=== PATIENT | male | born 2000 | race Caucasian/White ===

== ENCOUNTER 2019-09-20 06:03 | Day surgery (SDC) | payer OTHER ==
[~2019-09-20] VITALS: Ht 182.9 cm; Wt 113.9 kg
[~2019-09-20 06:03] MED LIST: LIDOCAINE 1% MDV 20ML VIAL SQ PRN; LR 1,000 ML IV ONE
[2019-09-20] MEDS ORDERED: dexameTHASONE 4 MG/ML 1ML VIAL (J1100) As Ordered ONE (07:35)
[2019-09-20] MEDS ORDERED: MIDAZOLAM INJ 2 MG/2 ML VIAL (J2250) As Ordered ONE (07:35)
[2019-09-20] MEDS ORDERED: PROPOFOL 200 MG/20 ML VIAL As Ordered ONE (07:35)
[2019-09-20] MEDS ORDERED: SUCCINYLCHOLINE 100 MG/5 ML SYRINGE (J0330) As Ordered ONE (07:35)
[2019-09-20] MEDS ORDERED: LIDOCAINE 2% INJ 100 MG/5 ML SDV (FOR ANES.) As Ordered ONE (07:35)
[2019-09-20] MEDS ORDERED: fentaNYL 100 MCG/2 ML INJECTION (J3010) As Ordered ONE (07:35)
[2019-09-20] MEDS ORDERED: ONDANSETRON 4MG/2ML VIAL (J2405) As Ordered ONE (07:35)
[2019-09-20] MEDS ORDERED: ROCURONIUM BROMIDE 50 MG/5 ML VIAL As Ordered ONE (07:35)
[2019-09-20] MEDS: BUPIVACAINE/EPIN 0.5% 30 ML VIAL As Ordered ONE (07:40)
[2019-09-20] MEDS: LIDOCAINE W/EPINEPHRINE 1% 20ML VIAL As Ordered ONE (07:40)
[2019-09-20 09:05] VITALS: BP 140/65
[2019-09-20] MEDS ORDERED: fentaNYL 100 MCG/2 ML INJECTION (J3010) IV PRN (11:45)
[2019-09-20] MEDS ORDERED: NORCO, ANEXSIA 5/325MG TABLET (HYDROcodone/ACETAMINOPHEN) PO PRN (11:45)
[2019-09-20] MEDS ORDERED: PERCOCET 5MG/325MG TAB PO PRN (11:45)
[2019-09-20] MEDS ORDERED: ONDANSETRON 4MG/2ML VIAL (J2405) IV PRN (11:45)
[2019-09-20] MEDS ORDERED: METOCLOPRAMIDE INJ 10MG/2ML VIAL (J2765) IV PRN (11:45)
[2019-09-20] MEDS ORDERED: LR 1,000 ML IV SCH ×2 (11:45)
--- NOTE | 2019-09-21 12:39 | RO ---
DATE OF PROCEDURE: 09/20/2019 PREOPERATIVE DIAGNOSIS: Chronic tonsillitis. POSTOPERATIVE DIAGNOSIS: Chronic tonsillitis. PROCEDURE: Tonsillectomy. SURGEON: Jv Talbot MD [facility]: ANESTHESIA: DESCRIPTION OF PROCEDURE: Under general anesthesia with the patient intubated, Bernard-Collin mouth gag was inserted. The tonsil area was infiltrated with lidocaine and infiltrated with Marcaine. Using cautery I dissected the tonsil free from its bed on both sides. The base and apex and other areas were cauterized with cautery. I did use some suction cautery on left side at the base. The patient tolerated the procedure well. Minimal blood loss. The patient extubated and transferred to the recovery room in excellent condition.
== END 2019-09-20 09:17 | disposition home or self-care (01) ==
LOC: M SDC 06:03
PROVIDERS: ATTEND Otolaryngology
DX: J35.01 Chronic tonsillitis (principal); F17.210 Nicotine dependence, cigarettes, uncomplicated

== ENCOUNTER 2019-09-22 13:40 | Emergency (ER) | payer OTHER ==
[~2019-09-22] VITALS: Ht 182.9 cm; Wt 111.0 kg
[2019-09-22] MEDS ORDERED: HYDR-3713 PO (13:55)
[2019-09-22] MEDS ORDERED: ONDANSETRON 4MG/2ML VIAL (J2405) IV ONE (14:15)
[2019-09-22] MEDS ORDERED: MORPHINE 4 MG/ML 1ML VIAL/SYRINGE (J2270) IV PRN (14:15)
[2019-09-22] MEDS ORDERED: NS 1,000 ML IV ONE (14:15)
[2019-09-22] MEDS ORDERED: KETOROLAC 30 MG/ML VIAL (J1885) IV ONE (14:15)
[2019-09-22 14:48] LABS: BASO % 0.2 % (0.0-1.0); EOS % 0.4 % (0.0-3.0); HEMATOCRIT 45.2 % (42.0-52.0); HEMOGLOBIN 15.6 g/dl (13.5-17.5); LYMPH # 2.7 10^3/uL (1.5-5.0); LYMPH % 24.7 % (24.0-44.0); MEAN CORPUSCULAR HEMOGLOBIN 30.2 pg (27.0-33.0); MEAN CORPUSCULAR HGB CONC 34.5 g/dl (32.0-36.5); MEAN CORPUSCULAR VOLUME 87.4 fl (80.0-96.0); NEUTROPHILS # 7.2 10^3/uL (1.5-8.5); NEUTROPHILS % 65.3 % (36.0-66.0); PLATELET COUNT, AUTOMATED 274 10^3/uL (150-450); RED BLOOD COUNT 5.17 10^6/uL (4.30-6.10)
[2019-09-22] MEDS ORDERED: HYDROmorphone 2 MG TAB PO ONE (15:45)
[2019-09-22] MEDS ORDERED: PERC10TA26 PO (15:50)
[2019-09-22] MEDS ORDERED: POTA20TA6 PO (15:52)
[2019-09-22 16:34] VITALS: BP 145/86
== END 2019-09-22 16:37 | disposition home or self-care (01) ==
LOC: M ED 13:40
DX: J02.9 Acute pharyngitis, unspecified (principal); G89.18 Other acute postprocedural pain; E87.6 Hypokalemia; F17.210 Nicotine dependence, cigarettes, uncomplicated
CPT/HCPCS: 80047; 85025; 96361; 96374; 96375; 99283; J1885; J2270; J2405